=== PATIENT | male | born 1970 | race African-American/Black ===

== ENCOUNTER 2017-03-01 20:20 | Emergency (ER) | payer BC ==
[~2017-03-01] VITALS: Ht 182.9 cm; Wt 86.2 kg
[~2017-03-01 20:20] MED LIST: VALIUM5 MG PO
[2017-03-01 20:22] VITALS: BP 145/89
== END 2017-03-01 20:45 | disposition home or self-care (01) ==
LOC: ER 20:20
DX: S50.862A Insect bite (nonvenomous) of left forearm, initial encounter (principal); S00.462A Insect bite (nonvenomous) of left ear, initial encounter; W57.XXXA Bitten or stung by nonvenomous insect and other nonvenomous arthropods, initial encounter; Y93.89 Activity, other specified; Y92.89 Other specified places as the place of occurrence of the external cause; Y99.8 Other external cause status

== ENCOUNTER 2018-07-27 16:52 | Emergency (ER) | payer OTHER ==
[~2018-07-27] VITALS: Ht 182.9 cm; Wt 93.0 kg
[2018-07-27 17:46] LABS: ABSOLUTE NEUTROPHILS 5.2 thou/uL (1.4-8.2); BASOPHILS 0.6 % (0.0-2.0); EOSINOPHILS 0.5 % (0.0-3.0); HEMATOCRIT 42.8 % (42.0-52.0); HEMOGLOBIN 14.5 gm/dL (14.0-18.0); LYMPHOCYTES 24.5 % (24.0-44.0); MCH 27.2 pg (26.0-34.0); MCHC 33.8 g/dL (28.0-37.0); MCV 80.2 fL (80.0-100.0); MONOCYTES 9.2 % (1.0-8.0); PLATELET COUNT 198 thou/uL (150-400); POLYS 65.2 % (36.0-66.0); RBC 5.34 mil/uL (4.50-6.00); RDW 13.2 % (10.5-14.5); WBC 7.9 thou/uL (4.0-11.0)
[2018-07-27] MEDS ORDERED: PAXIL10 MG PO (17:49)
[2018-07-27 17:53] LABS: ANION GAP 9 mmol/L (7-16); BUN 9 mg/dL (7-18); CHLORIDE 102 mmol/L (98-107); CO2 26 mmol/L (21-32); CREATININE 1.2 mg/dL (0.7-1.3); GLUCOSE 114 mg/dL (74-106); POTASSIUM 3.5 mmol/L (3.5-5.1); SODIUM 137 mmol/L (136-145)
[2018-07-27 18:04] LABS: ALBUMIN 3.8 g/dL (3.4-5.0); SGOT 22 U/L (15-37); SGPT 33 U/L (30-65); TOTAL BILIRUBIN 0.3 mg/dL (<0.1-1.0); TOTAL PROTEIN 8.1 g/dL (6.4-8.2); TROPONIN-I <0.06 ng/mL (<0.06)
[2018-07-27 19:08] VITALS: BP 134/88
[2018-07-27] MEDS ORDERED: ATIVAN1 MG PO (19:12)
--- NOTE | 2018-07-29 21:49 | EKG ---
[address] [address] ELECTROCARDIOGRAM REPORT Name: MERCY MEYERS Room #: DEP REYNALDO Hudson#: [id number] Admission: 07/27/18 Attend Phys: Discharge: 07/27/18 Date of : 68 Report #: [id number] THIS REPORT FOR: //name// [facility] ED Test Date: 2018-07-27 Test Time: 17:33:18 Pat Name: MERCY MEYERS Department: Room: Gender: Master Dyer: SAVAGEMaren : 1970 Requested By: Keith Espinoza Order Number: [id number] MD: Bay Arevalo Measurements Intervals [place] Rate: 89 P: 28 ME: 165 QRS: 11 QRSD: 82 T: 1 QT: 349 QTc: 425 Interpretive Statements Sinus rhythm Probable left atrial enlargement Compared to ECG 02/10/2014 10:12:28 No significant changes Electronically Signed On 07-29-2018 21:49:31 REPORT ANALYST by Bay Arevalo [email or web address] <ELECTRONICALLY SIGNED> By: Bay Arevalo MD 07/29/18 [id number] Bay Arevalo MD /KIANNA
== END 2018-07-27 19:16 | disposition home or self-care (01) ==
LOC: ER 16:52
PROVIDERS: Physician Assistant
DX: R06.02 Shortness of breath (principal); R00.2 Palpitations; F41.9 Anxiety disorder, unspecified